=== PATIENT | male | born 1995 | race Caucasian/White ===

== ENCOUNTER 2023-06-08 10:27 | Outpatient (OUT) | payer OTHER, SELFPAY ==
[2023-06-08 11:02] LABS: Basophils Absolute Auto 0.1 10^3/uL (0.0-0.1); Basophils Percent Auto 2.2 % (0.2-2.0); Eosinophils Absolute Auto 0.2 10^3/uL (0.0-0.7); Eosinophils Percent Auto 4.2 % (0.9-7.0); Hematocrit 45.1 % (42.0-54.0); Hemoglobin 15.6 g/dL (14.0-18.0); Immature Granulocytes Abs Auto 0.01 10^3/uL (0.00-0.03); Immature Granulocytes Pct Auto 0.2 % (0.0-0.5); Lymphocytes Absolute Auto 1.6 10^3/uL (1.2-3.8); Lymphocytes Percent Auto 35.2 % (20.5-60.0); Mean Corpuscular HGB Conc 34.6 g/dL (29.9-35.2); Mean Corpuscular Hemoglobin 29.2 pg (25.9-34.0); Mean Corpuscular Volume 84.3 fL (80.0-94.0); Mean Platelet Volume 11.1 fL (9.5-13.5); Monocytes Absolute Auto 0.4 10^3/uL (0.3-0.8); Monocytes Percent Auto 9.4 % (1.7-12.0); Neutrophils Absolute Auto 2.2 10^3/uL (1.4-6.5); Neutrophils Percent Auto 48.8 % (43.0-75.0); Platelet Count 207 10^3/uL (150-450); Red Blood Count 5.35 10^6/uL (4.70-6.10); Red Cell Distribution Width 12.5 % (11.0-15.0); White Blood Count 4.6 10^3/uL (4.0-11.0)
[2023-06-08 12:19] LABS: Estimated Average Glucose 88 mg/dL; Glycohemoglobin A1C 4.7 % (4.5-6.2)
[2023-06-08 12:29] LABS: Anion Gap 8.1; Chloride 107 mmol/L (98-107); Estimated GFR (African America >60 (>=60); Glucose 102 mg/dL (74-106); Potassium 4.1 mmol/L (3.5-5.1); Sodium 141 mmol/L (136-145)
[2023-06-08 12:30] LABS: Alanine Aminotransferase 19 U/L (16-63); Albumin Globulin Ratio 1.3; Albumin Level 3.9 g/dL (3.4-5.0); Alkaline Phosphatase 75 U/L (46-116); Aspartate Amino Transferase 14 U/L (15-37); BUN Creatinine Ratio 10.6; Bilirubin Total 0.8 mg/dL (0.2-1.0); Calcium 8.8 mg/dL (8.5-10.1); Chol HDL Ratio 3.6; Cholesterol 178 mg/dL (<=200); Estimated GFR (Non-African Ame >60 (>=60); Free T3 2.92 pg/mL (2.18-3.98); HDL Cholesterol 49 mg/dL (40-60); LDL Cholesterol Calculated 112.4 mg/dL; Thyroid Stimulating Hormone 3.794 uIU/mL (0.358-3.740); Total Protein 6.9 g/dL (6.4-8.2); Triglycerides 83 mg/dL (<=150); Uric Acid 5.2 mg/dL (3.5-7.2); VLDL CHOLESTEROL 16.6 mg/dL
[2023-06-09 11:10] LABS: Insulin 13.4 uIU/mL (2.6-24.9)
== END 2023-06-08 10:28 | disposition home or self-care (01) ==
LOC: LAB 10:30
PROVIDERS: PCP Family Medicine; Visit Provider Family Medicine
DX: Z00.00 Encounter for general adult medical examination without abnormal findings (principal)
CPT/HCPCS: 36415; 80053; 80061; 83036; 83525; 84436; 84443; 84481; 84550; 85025

== ENCOUNTER 2023-08-19 08:54 | Outpatient (OUT) | payer OTHER, SELFPAY ==
--- NOTE | 2023-08-19 08:56 | XR_ITS ---
The [address] [address] Patient Name: MEÑO ALEXANDRE MRN: [id number] date: 1995 Sex: M Assigned Patient Location: CARD Current Patient Location: CARD Accession/Order Number: [id number] Exam Date: 08/19/2023 09:00 Report Date: 08/19/2023 09:38 At the request of: NON-STAFF PHYSICIAN Procedure: XR chest 2V EXAM: XR chest 2V HISTORY: Chronic Cough R05 COMPARISON: None. TECHNIQUE: PA and lateral views of the chest. FINDINGS: The cardiomediastinal silhouette is normal. No focal consolidation is identified. There is no pneumothorax. No pleural effusion is noted. The osseous structures are intact. XR/XR chest 2V IMPRESSION: No acute cardiopulmonary process. Electronically authenticated by: ARLEN RAM Date: 08/19/2023 09:38
--- NOTE | 2023-08-19 09:59 | RT_ITS ---
The [facility] Test Date: 2023-08-19 Pat Name: MEÑO ALEXANDRE Department: Room: - Gender: Male Complaint Operator: Grayson Meadows RRT : 1995 Requested By: [id number] Order Number: [id number] Reading MD: Michael Goldstein Interpretive Statements Spirometry was completed according to ATS criteria. Findings were considered accurate and reproducible with exception of FVC. Both pre- and post-bronchodilator values utilized for spirometry. No prior studies available for comparison. Spirometry (based on pre-bronchodilator values): -FEV1/FVC: Normal @ 80% -FEV1: Normal @ 112% -FVC: Normal @ 113% -There is no significant bronchodilator response. Flow-volume loop: -Normal shape Impressions: -Normal spirometry. If asthma remains in the differential, may consider methacholine challenge testing. Clinical correlation required. Electronically Signed On 08-25-2023 18:07:35 EST by Michael Goldstein
[2023-08-19] MEDS: ALBUTEROL SULFATE 2.5 MG/3 ML VIAL NEB IH (10:00)
== END 2023-08-19 08:55 | disposition home or self-care (01) ==
LOC: CARD 08:54
PROVIDERS: PCP Family Medicine
DX: R05.9 Cough, unspecified (principal)
CPT/HCPCS: 71046; 94060